=== PATIENT | male | born 1955 | race African-American/Black ===

== ENCOUNTER 2017-12-17 13:52 | Emergency (ER) | payer OTHER, MEDICAID ==
[~2017-12-17] VITALS: Ht 177.8 cm; Wt 76.0 kg
[~2017-12-17 13:52] MED LIST: AMAN100T PO; DICL75TA5 PO; DIVA500T PO; DIVAL250 PO; DOCU250C69 PO; FERR-54 PO; HYDR50CA5 PO; LISI10TA5 PO; MIRT-91 PO; MIRT30TA77 PO; OLAN5TAB26 PO; OXYC-662 GT; POLY15DR56 OP; SENN8.6T60 PO; TRAZ-132 PO; VITA100T3 PO
[2017-12-17] MEDS ORDERED: IBUPROFEN 600MG TABLET PO ONE (14:45)
[2017-12-17 15:24] VITALS: BP 162/98
== END 2017-12-17 16:50 | disposition home or self-care (01) ==
LOC: ER 14:11
DX: J11.1 Influenza due to unidentified influenza virus with other respiratory manifestations (principal); I10 Essential (primary) hypertension; F31.9 Bipolar disorder, unspecified; F11.10 Opioid abuse, uncomplicated; F14.10 Cocaine abuse, uncomplicated; F12.10 Cannabis abuse, uncomplicated; Z86.73 Personal history of transient ischemic attack (TIA), and cerebral infarction without residual deficits
CPT/HCPCS: 71045; 87804; 93005; 99285